=== PATIENT | female | born 1930 | race Caucasian/White ===

== ENCOUNTER 2017-10-11 18:36 | Inpatient (IN) | payer MEDICARE, BC ==
[~2017-10-11] VITALS: Ht 162.6 cm; Wt 72.5 kg
[~2017-10-11 18:36] MED LIST: COUMADIN4 MG PO
[2017-10-11 21:00] VITALS: BP 107/74; BP 110/67
[2017-10-11 21:33] LABS: BASOPHILS 0.1 % (0-2); EOSINOPHILS 0.1 % (0-7); HEMOGLOBIN 7.6 g/dL (12-16); IMMATURE GRANULOCYTES 1.2 % (0-5); LYMPHOCYTES 20.3 % (15-50); MCH 27.5 pg (26.0-34.0); MCV 83.3 fL (80.0-100.0); MEAN PLATELET VOLUME 11.3 fL (7.4-10.4); MONOCYTES 9.1 % (2-11); NEUTROPHILS 69.2 % (40-80); PLATELET COUNT 143 10x3/uL (130-400); RBC 2.76 10x6/uL (4.00-5.40); RDW 18.5 % (11.5-14.5); WBC 16.9 10x3/uL (4.8-10.8)
[2017-10-11 21:46] LABS: ANION GAP 14.8 mmol/L (8-16); CALCIUM 8.7 mg/dL (8.5-10.1); CARBON DIOXIDE 22.3 mmol/L (21.0-32.0); CREATININE - SERUM 1.1 mg/dL (0.6-1.3); POTASSIUM - SERUM 4.1 mmol/L (3.5-5.1)
[2017-10-11 22:00] VITALS: BP 126/62
[2017-10-11 23:00] VITALS: BP 140/64
[2017-10-11 23:22] VITALS: BP 107/74; BMI 28.0
[2017-10-11] MEDS ORDERED: LISINOPRIL10 MG PO (23:58)
[2017-10-12] VITALS (27 sets, daily range): BP systolic 88–154; BP diastolic 34–91
[2017-10-12] MEDS ORDERED: COUMADIN2 MG PO
[2017-10-12] MEDS ORDERED: LIPITOR40 MG PO (00:01)
[2017-10-12] MEDS ORDERED: BYSTOLIC10 MG PO (00:02)
[2017-10-12 00:18] LABS: INR 1.39 (0.85-1.17); PROTIME 16.6 SECONDS (11.6-15.0)
[2017-10-12 00:39] LABS: % SATURATION 34 % (15-55); IRON 116 ug/dl (35-150); TOTAL IRON BIND CAPACITY 333 ug/dl (260-445); UNSAT IRON BIND CAPACITY 217 ug/dl (150-375)
[2017-10-12 00:46] LABS: FERRITIN 46 ng/mL (3-244); LDH 258 U/L (81-234)
[2017-10-12 00:48] LABS: BASOPHILS 0.1 % (0-2); EOSINOPHILS 0.3 % (0-7); HEMATOCRIT 22.4 % (36.0-48.0); LYMPHOCYTES 28.6 % (15-50); MCH 27.5 pg (26.0-34.0); MCHC 32.6 g/dL (31.0-37.0); MCV 84.5 fL (80.0-100.0); MONOCYTES 10.4 % (2-11); NEUTROPHILS 59.6 % (40-80); PLATELET COUNT 144 10x3/uL (130-400); RBC 2.65 10x6/uL (4.00-5.40); RDW 19.3 % (11.5-14.5); WBC 15.4 10x3/uL (4.8-10.8)
[2017-10-12 00:52] LABS: HEMOGLOBIN 7.3 g/dL (12-16)
[2017-10-12 01:25] LABS: CKMB 1.1 U/L (0.0-3.6); CREATINE KINASE 66 UL (21-215)
[2017-10-12 01:26] LABS: TROPONIN-I 0.066 ng/mL (0.000-0.060)
[2017-10-12 08:04] LABS: BASOPHILS 0.2 % (0-2); EOSINOPHILS 1.1 % (0-7); HEMATOCRIT 24.6 % (36.0-48.0); HEMOGLOBIN 8.2 g/dL (12-16); LYMPHOCYTES 23.8 % (15-50); MCH 28.4 pg (26.0-34.0); MCHC 33.3 g/dL (31.0-37.0); MCV 85.1 fL (80.0-100.0); MEAN PLATELET VOLUME 10.3 fL (7.4-10.4); MONOCYTES 11.7 % (2-11); NEUTROPHILS 62.2 % (40-80); PLATELET COUNT 122 10x3/uL (130-400); RBC 2.89 10x6/uL (4.00-5.40); RDW 18.8 % (11.5-14.5); WBC 12.2 10x3/uL (4.8-10.8)
[2017-10-12 08:48] LABS: CALC OSMOLALITY 306 mosm/kg (275-300); CALCIUM 8.7 mg/dL (8.5-10.1); CARBON DIOXIDE 24.6 mmol/L (21.0-32.0); CHLORIDE - SERUM 112 mmol/L (98-107); CKMB 1.3 U/L (0.0-3.6); CREATINE KINASE 67 UL (21-215); CREATININE - SERUM 0.9 mg/dL (0.6-1.3); GLUCOSE 112 mg/dL (74-106); POTASSIUM - SERUM 3.9 mmol/L (3.5-5.1); SODIUM 145 mmol/L (136-145); TROPONIN-I 0.053 ng/mL (0.000-0.060); UREA NITROGEN 61 mg/dL (7-18); eGFR NON AFRICAN AMERICAN 63 mL/min (90-120)
[2017-10-12] MEDS ORDERED: VITAMIN D2000 UNIT PO (11:04)
[2017-10-12] MEDS ORDERED: GLUCOSAMINE HC500 MG PO (11:04)
[2017-10-12 12:38] LABS: BASOPHILS 0.2 % (0-2); EOSINOPHILS 1.5 % (0-7); HEMATOCRIT 24.4 % (36.0-48.0); HEMOGLOBIN 8.2 g/dL (12-16); IMMATURE GRANULOCYTES 1.2 % (0-5); LYMPHOCYTES 25.1 % (15-50); MCH 28.9 pg (26.0-34.0); MCHC 33.6 g/dL (31.0-37.0); MCV 85.9 fL (80.0-100.0); MEAN PLATELET VOLUME 11.4 fL (7.4-10.4); MONOCYTES 11.5 % (2-11); NEUTROPHILS 60.5 % (40-80); PLATELET COUNT 123 10x3/uL (130-400); RBC 2.84 10x6/uL (4.00-5.40); RDW 18.9 % (11.5-14.5); WBC 12.2 10x3/uL (4.8-10.8)
[2017-10-12 12:44] LABS: CKMB 0.9 U/L (0.0-3.6); CREATINE KINASE 72 UL (21-215); TROPONIN-I 0.053 ng/mL (0.000-0.060)
[2017-10-12 14:49] LABS: APPEARANCE CLEAR (CLEAR); BILIRUBIN NEGATIVE (NEGATIVE); COLOR YELLOW (YELLOW); GLUCOSE NEGATIVE (NEGATIVE); KETONE NEGATIVE (NEGATIVE); NITRITE NEGATIVE (NEGATIVE); PROTEIN NEGATIVE (NEGATIVE); UROBILINOGEN NORMAL (NORMAL)
[2017-10-12 19:05] LABS: BASOPHILS 0.2 % (0-2); EOSINOPHILS 2.6 % (0-7); HEMATOCRIT 27.4 % (36.0-48.0); HEMOGLOBIN 9.2 g/dL (12-16); IMMATURE GRANULOCYTES 1.3 % (0-5); MCH 28.7 pg (26.0-34.0); MCHC 33.6 g/dL (31.0-37.0); MCV 85.4 fL (80.0-100.0); MEAN PLATELET VOLUME 11.3 fL (7.4-10.4); MONOCYTES 12.6 % (2-11); NEUTROPHILS 56.3 % (40-80); PLATELET COUNT 116 10x3/uL (130-400); RBC 3.21 10x6/uL (4.00-5.40); RDW 17.5 % (11.5-14.5); WBC 10.4 10x3/uL (4.8-10.8)
[2017-10-13] VITALS (17 sets, daily range): BP systolic 115–156; BP diastolic 41–77; Ht 162.6 cm; Wt 72.5 kg
[2017-10-13 03:43] LABS: HEMATOCRIT 26.7 % (36.0-48.0); HEMOGLOBIN 8.7 g/dL (12-16)
[2017-10-13 03:49] LABS: INR 1.09 (0.85-1.17); PROTIME 13.7 SECONDS (11.6-15.0)
[2017-10-13 05:33] LABS: BASOPHILS 0.1 % (0-2); EOSINOPHILS 3.4 % (0-7); HEMATOCRIT 25.7 % (36.0-48.0); HEMOGLOBIN 8.6 g/dL (12-16); LYMPHOCYTES 24.4 % (15-50); MCH 29.1 pg (26.0-34.0); MCHC 33.5 g/dL (31.0-37.0); MCV 86.8 fL (80.0-100.0); MEAN PLATELET VOLUME 11.1 fL (7.4-10.4); MONOCYTES 11.7 % (2-11); NEUTROPHILS 59.4 % (40-80); PLATELET COUNT 127 10x3/uL (130-400); RBC 2.96 10x6/uL (4.00-5.40); RDW 18.3 % (11.5-14.5); WBC 10.2 10x3/uL (4.8-10.8)
[2017-10-13 05:42] LABS: ALBUMIN 2.6 g/dL (3.4-5.0); ANION GAP 11.8 mmol/L (8-16); BILIRUBIN - TOTAL 0.38 mg/dL (0.2-1.3); CALCIUM 8.4 mg/dL (8.5-10.1); CARBON DIOXIDE 24.1 mmol/L (21.0-32.0); CREATININE - SERUM 0.8 mg/dL (0.6-1.3); PHOSPHOROUS 2.8 mg/dL (2.5-4.9); POTASSIUM - SERUM 3.9 mmol/L (3.5-5.1); PROTEIN - SERUM 5.2 g/dL (6.4-8.2)
[2017-10-13 20:37] LABS: HEMOGLOBIN 11.2 g/dL (12-16)
[2017-10-13 20:42] LABS: HEMATOCRIT 33.9 % (36.0-48.0)
[2017-10-14 03:00] VITALS: BP 130/66
[2017-10-14 04:58] LABS: BASOPHILS 0.1 % (0-2); EOSINOPHILS 4.3 % (0-7); HEMATOCRIT 30.8 % (36.0-48.0); HEMOGLOBIN 10.1 g/dL (12-16); IMMATURE GRANULOCYTES 0.6 % (0-5); LYMPHOCYTES 23.5 % (15-50); MCH 28.3 pg (26.0-34.0); MCHC 32.8 g/dL (31.0-37.0); MCV 86.3 fL (80.0-100.0); MEAN PLATELET VOLUME 11.3 fL (7.4-10.4); MONOCYTES 10.8 % (2-11); NEUTROPHILS 60.7 % (40-80); PLATELET COUNT 139 10x3/uL (130-400); RDW 18.4 % (11.5-14.5); WBC 9.9 10x3/uL (4.8-10.8)
[2017-10-14 05:04] LABS: RBC 3.57 10x6/uL (4.00-5.40)
[2017-10-14 05:15] LABS: ANION GAP 11.9 mmol/L (8-16); CALCIUM 8.6 mg/dL (8.5-10.1); CARBON DIOXIDE 26.6 mmol/L (21.0-32.0); CREATININE - SERUM 0.8 mg/dL (0.6-1.3); POTASSIUM - SERUM 3.5 mmol/L (3.5-5.1)
[2017-10-14 07:00] VITALS: BP 129/72
[2017-10-14 12:00] VITALS: BP 139/67
[2017-10-14 14:54] LABS: HCG URINE NEGATIVE (NEGATIVE)
[2017-10-14 15:00] VITALS: BP 148/75
[2017-10-14 22:17] VITALS: BP 158/94
[2017-10-15 03:56] VITALS: BP 152/61
[2017-10-15 08:06] VITALS: BP 151/59
[2017-10-15 08:22] LABS: FOLATE (FOLIC ACID) - SERUM 4.3 ng/mL (>3.0)
[2017-10-15 10:55] LABS: BASOPHILS 0.2 % (0-2); EOSINOPHILS 4.2 % (0-7); HEMATOCRIT 33.3 % (36.0-48.0); HEMOGLOBIN 10.9 g/dL (12-16); IMMATURE GRANULOCYTES 0.3 % (0-5); LYMPHOCYTES 16.8 % (15-50); MCH 28.8 pg (26.0-34.0); MCHC 32.7 g/dL (31.0-37.0); MCV 88.1 fL (80.0-100.0); MEAN PLATELET VOLUME 10.8 fL (7.4-10.4); MONOCYTES 8.4 % (2-11); NEUTROPHILS 70.1 % (40-80); PLATELET COUNT 160 10x3/uL (130-400); RBC 3.78 10x6/uL (4.00-5.40); RDW 18.5 % (11.5-14.5); WBC 10.6 10x3/uL (4.8-10.8)
[2017-10-15 11:12] LABS: ALBUMIN 2.8 g/dL (3.4-5.0); ANION GAP 12.2 mmol/L (8-16); BILIRUBIN - TOTAL 0.83 mg/dL (0.2-1.3); CALCIUM 8.7 mg/dL (8.5-10.1); CARBON DIOXIDE 26.4 mmol/L (21.0-32.0); CREATININE - SERUM 0.8 mg/dL (0.6-1.3); POTASSIUM - SERUM 3.6 mmol/L (3.5-5.1); PROTEIN - SERUM 5.6 g/dL (6.4-8.2)
[2017-10-15 12:44] VITALS: BP 178/76
[2017-10-15 16:25] VITALS: BP 179/87
[2017-10-15 21:38] VITALS: BP 118/64
[2017-10-16 03:50] VITALS: BP 166/77
[2017-10-16 05:41] LABS: BASOPHILS 0.1 % (0-2); EOSINOPHILS 3.6 % (0-7); HEMATOCRIT 31.4 % (36.0-48.0); HEMOGLOBIN 10.3 g/dL (12-16); IMMATURE GRANULOCYTES 0.4 % (0-5); LYMPHOCYTES 16.5 % (15-50); MCH 28.7 pg (26.0-34.0); MCHC 32.8 g/dL (31.0-37.0); MCV 87.5 fL (80.0-100.0); MEAN PLATELET VOLUME 11.5 fL (7.4-10.4); MONOCYTES 10.6 % (2-11); NEUTROPHILS 68.8 % (40-80); PLATELET COUNT 171 10x3/uL (130-400); RBC 3.59 10x6/uL (4.00-5.40); RDW 18.3 % (11.5-14.5); WBC 10.4 10x3/uL (4.8-10.8)
[2017-10-16 05:54] LABS: ALBUMIN 2.8 g/dL (3.4-5.0); ANION GAP 12.9 mmol/L (8-16); BILIRUBIN - TOTAL 0.9 mg/dL (0.2-1.3); CALCIUM 8.4 mg/dL (8.5-10.1); CARBON DIOXIDE 23.4 mmol/L (21.0-32.0); CREATININE - SERUM 0.8 mg/dL (0.6-1.3); POTASSIUM - SERUM 3.3 mmol/L (3.5-5.1); PROTEIN - SERUM 5.4 g/dL (6.4-8.2)
[2017-10-16 06:02] LABS: INR 1.01 (0.85-1.17); PROTIME 12.9 SECONDS (11.6-15.0)
[2017-10-16 08:14] VITALS: BP 163/79
[2017-10-16 12:27] VITALS: BP 171/83
[2017-10-16] MEDS ORDERED: PROTONIX40 MG PO (12:38)
[2017-10-16] MEDS ORDERED: LOVENOX30 MG/0.3 SC (12:39)
[2017-10-16 15:59] VITALS: BP 159/89
== END 2017-10-16 18:15 | DRG 377 ==
LOC: D.ICU 18:36 → D.MS 20:19 → D.ICU 20:19 → D.MS 10-14 19:26
PROVIDERS: Family Medicine; Internal Medicine Gastroenterology; Internal Medicine Nephrology; Internal Medicine Pulmonary Disease
PROC: 0DD78ZX Extraction of Stomach, Pylorus, Via Natural or Artificial Opening Endoscopic, Diagnostic (ICD-10-PCS; principal; 2017-10-12 16:00)
PROC: 0DJD8ZZ Inspection of Lower Intestinal Tract, Via Natural or Artificial Opening Endoscopic (ICD-10-PCS; 2017-10-15)
DX: K29.71 Gastritis, unspecified, with bleeding (principal); R57.8 Other shock; R57.1 Hypovolemic shock; D62 Acute posthemorrhagic anemia; N17.9 Acute kidney failure, unspecified; K57.30 Diverticulosis of large intestine without perforation or abscess without bleeding; I10 Essential (primary) hypertension; Z95.1 Presence of aortocoronary bypass graft

== ENCOUNTER 2017-10-16 14:58 | Inpatient (IN) | payer MEDICARE, BC ==
[~2017-10-16] VITALS: Ht 162.6 cm; Wt 81.6 kg
--- NOTE | ~2017-10-16 | RHP ---
PATIENT: MECHE BROOKS MEDICAL RECORD: [id number] ACCOUNT: [id number] LOCATION:[id number] : 31 ADMISSION DATE: 10/16/17 REHABILITATION HISTORY AND PHYSICAL EXAMINATION POST ADMISSION PHYSICIAN EXAMINATION POST-ADMISSION PHYSICAL EXAMINATION AND HISTORY AND PHYSICAL DATE OF ADMISSION TO THE REHAB: 10/16/2017 ADMITTING DIAGNOSIS: Disuse myopathy. HISTORY OF PRESENT ILLNESS: The patient is admitted to inpatient rehab with a neurological condition disuse myopathy. She is an 87-year-old female patient with history of hypertension, coronary artery disease, status post coronary artery bypass grafting, aortic valve replacement. She has had PE in the past. She has got a factor V Leiden deficiency. She is on Coumadin. She presented to the acute hospital with 1 day of chest pain, easy fatigability, and lightheadedness. She has got multiple falls with loss of consciousness. Her H&H was 5.8 and 18.1 with positive stool guaiac. Her INR was 3.1. Chest x-ray showed possible left lower lobe infiltrate versus atelectasis. She was transfused 2 units of packed red blood cells and given fluids. She was transferred to the acute hospital for higher level of care. She was admitted to the ICU and transferred on to the floor eventually. She had an EGD and colonoscopy with no findings of acute bleeding. CT of her abdomen and pelvis with contrast showed cholelithiasis, mild diverticulosis. 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 She received 3 units of packed red blood cells on 10/11, 10/12, and 10/13. She has proximal muscle weakness, difficulty rising from bed to chair. She lives at home alone, was moderately independent with single-point cane, was independent with ADLs. She is set up for moderate assist for ADLs, moderate assist to total assist for mobility. She is on 2 liters of O2. She plans to return home hopefully at her prior level of functioning or better. Comorbidities in this patient include anemia, acute gastrointestinal bleed, hypokalemia, acute kidney injury, coagulopathy. She has got aortic valve replacement, constipation, leukocytosis, gastritis, frequent falls. She has got changes per colonoscopy and EGD. PAST MEDICAL HISTORY: Significant for CVA in the past, cataracts, hypertension, coronary artery bypass grafting, murmurs. She has had aortic valve replacement, CDT, shingles, history of factor V Leiden deficiency, GI bleed, constipation, arthritis, and history of tobacco use. PAST SURGICAL HISTORY: Includes coronary artery bypass grafting, aortic valve replacement, hip replacement. ALLERGIES: PENICILLIN AND CODEINE. CURRENT MEDICATIONS: She is on Coumadin, she is on 2 mg most of the week and she is on 4 mg on Friday, Friday, and Friday. She is on Lovenox 30 mg subcutaneous b.i.d. until her Coumadin level is therapeutic. She is on Protonix 40 mg b.i.d., glucosamine. She is on potassium and electrolyte protocol at this time. Bystolic 10 mg b.i.d., lisinopril 10 mg b.i.d. She is on Lipitor 40 mg at bedtime and polyethylene glycol 17 g in 8 ounces of water daily. HISTORY AND PHYSICAL [id number] MECHE BROOKS HABITS: Does have history of tobacco use. FAMILY HISTORY: Noncontributory. SOCIAL HISTORY: The patient hopes to return back home and get back to her prior level of functioning. REVIEW OF SYSTEMS: GENERAL: Does complain of weakness and fatigue. HEENT: Denies cold, cough, or congestion. CARDIOVASCULAR: Denies chest pain. PHYSICAL EXAMINATION: VITAL SIGNS: Stable, afebrile. GENERAL: Elderly female, in no acute distress upon exam. HEENT: Normocephalic and atraumatic. Mucosa moist. NECK: Supple. No lymphadenopathy. LUNGS: Clear at this time. HEART: Regular rate and rhythm. ABDOMEN: Benign. EXTREMITIES: No clubbing, cyanosis, or edema. NEUROLOGIC: She seems intact. LABORATORY DATA: White count is 7.6, H&H of 9.3 and 28.9, and platelet count was noted to be 173. Her INR is 1.06. Sodium 145, potassium 3.6, BUN and creatinine of 10 and 0.9, blood sugar was noted to be 101. ASSESSMENT: This is an 87-year-old female patient admitted to rehab with a working diagnosis of disuse myopathy complicated by acute blood loss anemia. The patient has potential to make improvement. We will institute the following multidisciplinary therapies including, but not limited to physical, occupational, respiratory, speech, nutritional services, prosthetics and orthotics. Given her complex medical condition and risks for more complications, rehabilitation services cannot be provided at a low level of care such as a long term facility. PLAN: 1. Admit to [facility] for intensive inpatient therapy to include the following disciplines: A. Physical therapy to improve gait, all transfer skills and bed mobility to a modified independent level. B. Occupational therapy to improve activities of daily living to a modified independent level. C. Case management to assist with discharge planning and placement options. D. Nutrition to assist with nutritional needs. E. Rehabilitation nursing to assist in monitoring the patient's underlying medical conditions and to assist with any type of bowel or bladder management. 2. The patient's current medications and medical care will be continued. 3. The patient will be placed on standard fall precautions. 4. The patient's estimated length of stay is approximately 7-10 days. 5. We will watch her closely for bleeding. If she shows any signs of this, we will have to treat. We will watch her slowly as we bridge her back on to her Coumadin and we will treat appropriately. I am going to follow up in the a.m. HISTORY AND PHYSICAL [id number] MECHE BROOKS TRANSINT:[id number] Voice Confirmation ID: [id number] DOCUMENT ID: [id number] INEZ notes whether there has been none or any medical/functional change since admission: - No change since prescreen. INEZ attests patient continues to be appropriate for IRF: - Continues to be appropriate. MADISON BHAKTA MD at 1405 CC: [id number] DICTATION DATE: 10/17/17 0859 [employer]: 10/17/17 1001 DIS IN 10/21/17 [facility] [address] [place] [address]
[~2017-10-16 14:58] MED LIST changes: +BYSTOLIC10 MG PO; +COUMADIN2 MG PO; +GLUCOSAMINE HC500 MG PO; +LIPITOR40 MG PO; +LISINOPRIL10 MG PO; +LOVENOX30 MG/0.3 SC; +PROTONIX40 MG PO; +VITAMIN D2000 UNIT PO
[2017-10-16 19:00] VITALS: BP 160/101
[2017-10-16 19:13] VITALS: BMI 30.9
[2017-10-17 05:48] LABS: BASOPHILS 0.3 % (0-2); HEMATOCRIT 28.9 % (36.0-48.0); HEMOGLOBIN 9.3 g/dL (12-16); IMMATURE GRANULOCYTES 0.3 % (0-5); MCH 28.4 pg (26.0-34.0); MCHC 32.2 g/dL (31.0-37.0); MCV 88.4 fL (80.0-100.0); MONOCYTES 12.1 % (2-11); NEUTROPHILS 57.3 % (40-80); PLATELET COUNT 173 10x3/uL (130-400); RBC 3.27 10x6/uL (4.00-5.40); RDW 18.2 % (11.5-14.5)
[2017-10-17 05:57] LABS: WBC 7.6 10x3/uL (4.8-10.8)
[2017-10-17 06:13] LABS: INR 1.06 (0.85-1.17); PROTIME 13.4 SECONDS (11.6-15.0)
[2017-10-17 06:26] LABS: ANION GAP 10.6 mmol/L (8-16); CALCIUM 8.5 mg/dL (8.5-10.1); CREATININE - SERUM 0.9 mg/dL (0.6-1.3); POTASSIUM - SERUM 3.6 mmol/L (3.5-5.1)
[2017-10-17 08:19] VITALS: BP 139/57
[2017-10-17 14:46] VITALS: Ht 162.6 cm; Wt 81.6 kg
[2017-10-17 19:00] VITALS: BP 143/63
[2017-10-18 08:00] VITALS: BP 106/63
[2017-10-18 20:49] VITALS: BP 137/64
[2017-10-19 06:35] LABS: INR 1.06 (0.85-1.17); PROTIME 13.4 SECONDS (11.6-15.0)
[2017-10-19 12:57] VITALS: BP 142/67
[2017-10-19 19:30] VITALS: BP 163/81
[2017-10-20 06:40] LABS: BASOPHILS 0.3 % (0-2); HEMATOCRIT 30.2 % (36.0-48.0); HEMOGLOBIN 9.7 g/dL (12-16); IMMATURE GRANULOCYTES 0.3 % (0-5); LYMPHOCYTES 28.5 % (15-50); MCH 28.8 pg (26.0-34.0); MCHC 32.1 g/dL (31.0-37.0); MCV 89.6 fL (80.0-100.0); MEAN PLATELET VOLUME 11.2 fL (7.4-10.4); MONOCYTES 12.5 % (2-11); NEUTROPHILS 53.4 % (40-80); PLATELET COUNT 233 10x3/uL (130-400); RBC 3.37 10x6/uL (4.00-5.40); RDW 17.8 % (11.5-14.5); WBC 7.8 10x3/uL (4.8-10.8)
[2017-10-20 07:02] LABS: ANION GAP 11.6 mmol/L (8-16); CALCIUM 8.9 mg/dL (8.5-10.1); CARBON DIOXIDE 28.3 mmol/L (21.0-32.0); CREATININE - SERUM 0.9 mg/dL (0.6-1.3); POTASSIUM - SERUM 3.9 mmol/L (3.5-5.1)
[2017-10-20 07:20] LABS: INR 1.18 (0.85-1.17); PROTIME 14.6 SECONDS (11.6-15.0)
[2017-10-20 08:00] VITALS: BP 129/54
[2017-10-20 19:00] VITALS: BP 160/78
[2017-10-21 06:17] LABS: BASOPHILS 0.2 % (0-2); HEMATOCRIT 32.9 % (36.0-48.0); HEMOGLOBIN 10.3 g/dL (12-16); IMMATURE GRANULOCYTES 0.2 % (0-5); LYMPHOCYTES 30.4 % (15-50); MCH 28.5 pg (26.0-34.0); MCHC 31.3 g/dL (31.0-37.0); MCV 91.1 fL (80.0-100.0); MEAN PLATELET VOLUME 11.7 fL (7.4-10.4); MONOCYTES 12.3 % (2-11); NEUTROPHILS 51.9 % (40-80); PLATELET COUNT 247 10x3/uL (130-400); RBC 3.61 10x6/uL (4.00-5.40); RDW 17.7 % (11.5-14.5); WBC 8.5 10x3/uL (4.8-10.8)
[2017-10-21 06:32] LABS: INR 1.26 (0.85-1.17); PROTIME 15.3 SECONDS (11.6-15.0)
[2017-10-21 06:41] LABS: ANION GAP 9.9 mmol/L (8-16); CARBON DIOXIDE 31.1 mmol/L (21.0-32.0); CREATININE - SERUM 0.9 mg/dL (0.6-1.3)
[2017-10-21 08:33] VITALS: BP 123/46
== END 2017-10-21 15:00 | disposition home health service (06) | DRG 91 ==
LOC: D.REHAB 14:58
PROVIDERS: Emergency Medicine; Family Medicine
DX: G72.89 Other specified myopathies (principal); K29.71 Gastritis, unspecified, with bleeding; N17.9 Acute kidney failure, unspecified; D68.9 Coagulation defect, unspecified; D62 Acute posthemorrhagic anemia; E87.6 Hypokalemia; Z95.2 Presence of prosthetic heart valve; K59.00 Constipation, unspecified; D72.829 Elevated white blood cell count, unspecified; Z91.81 History of falling

== ENCOUNTER 2019-08-19 09:34 | Outpatient (CLI) | payer MEDICARE, BC ==
[~2019-08-19] VITALS: Ht 162.6 cm; Wt 68.2 kg
[2019-08-19 10:38] VITALS: BP 124/77; Ht 162.6 cm; Wt 68.2 kg
== END 2019-08-19 13:55 | disposition home or self-care (01) ==
LOC: D.OPS 09:34
PROVIDERS: ATTEND Family Medicine
DX: D64.9 Anemia, unspecified (principal)